=== PATIENT | female | born 1965 | race Caucasian/White ===

== ENCOUNTER 2018-11-21 10:23 | Emergency (ER) | payer MEDICAID ==
[~2018-11-21] VITALS: Ht 160 cm; Wt 68.0 kg
[2018-11-21 10:28] VITALS: BP_SYST 158
--- NOTE | 2018-11-21 10:39 | NUR ---
Patient to ER bed 2 to gown for evaluation. Side rails up. Report given to Verena ELLER.
--- NOTE | 2018-11-21 10:50 | NUR ---
PT STATES THAT SHE IS NOW LIVING IN A [facility], PT HAS A CAR BUT IS OUT OF GAS. PT STATES THAT SHE HAS MANY RED BUMPS ON LEGS. OFFERED PT A MEAL TRAY AND SHE SAYS SHE'S NOT HUNGRY AT THIS TIME.
[2018-11-21] MEDS ORDERED: NACL 0.9% 1,000 ML IV ONE (11:08)
--- NOTE | 2018-11-21 11:11 | NUR ---
DR NASH AT BEDSIDE FOR EVALUATION
[2018-11-21] MEDS ORDERED: KETOROLAC TROMETHAMINE 30 MG VIAL IVP ONE (11:15)
[2018-11-21 11:39] LABS: CALCIUM 8.9 mg/dL (8.4-11.0); CREATININE 0.57 mg/dL (0.55-1.30); POTASSIUM 3.7 mmol/L (3.5-5.1)
[2018-11-21 11:40] LABS: BASOPHILS # (AUTO) 0.1 K/uL (0.0-0.2); BASOPHILS % (AUTO) 0.9 % (0.0-2.0); EOSINOPHILS # (AUTO) 0.2 K/uL (0.0-0.4); HEMATOCRIT 40.8 % (36-48); HEMOGLOBIN 13.6 g/dL (12.0-16.0); LYMPHOCYTES # (AUTO) 1.8 K/uL (1.0-5.5); LYMPHOCYTES % (AUTO) 28.6 % (20.5-51.5); MEAN CORPUSCULAR HEMOGLOBIN 30 pg (27-31); MEAN CORPUSCULAR HGB CONC 33 % (32-36); MEAN CORPUSCULAR VOLUME 91 fL (79.0-98.0); MONOCYTES # (AUTO) 0.5 K/uL (0.0-1.0); MONOCYTES % (AUTO) 7.8 % (1.7-9.3); NEUTROPHILS # (AUTO) 3.5 K/uL (1.8-7.7); NEUTROPHILS % (AUTO) 58.7 % (40.0-70.0); PLATELET COUNT (AUTO) 272 K/uL (130-430); RED BLOOD CELL COUNT(AUTO) 4.47 MIL/uL (4.2-6.2); RED CELL DISTRIBUTION WIDTH 12.2 % (9.0-15.0); WHITE BLOOD COUNT (AUTO) 6.1 K/uL (4.8-10.8)
[2018-11-21 11:45] LABS: ALBUMIN 2.6 g/dL (3.4-4.8); INR 0.9 (0.8-1.2); PROTHROMBIN TIME 9.3 SECS (9.5-12.5); TOTAL BILIRUBIN 0.4 mg/dL (0.0-1.0)
--- NOTE | 2018-11-21 11:45 | NUR ---
RESTING QUIETLY, NO CHANGES.
[2018-11-21 11:51] LABS: BILIRUBIN,URINE NEGATIVE (NEGATIVE); CLARITY/URINE HAZY (CLEAR); COLOR,URINE YELLOW (YELLOW); GLUCOSE,URINE NEGATIVE (NEGATIVE); KETONES,URINE NEGATIVE (NEGATIVE); LEUKOCYTE ESTERASE ,URINE NEGATIVE (NEGATIVE); NITRITE, URINE NEGATIVE (NEGATIVE); PROTEIN URINE NEGATIVE (NEGATIVE)
[2018-11-21 11:52] LABS: BLOOD, URINE TRACE (NEGATIVE)
--- NOTE | 2018-11-21 12:02 | NUR ---
DR NASH AT BEDSIDE FOR RE-EVALUATION.
[2018-11-21 12:10] LABS: BACTERIA,URINE RARE /HPF (None Seen); MUCUS,URINE 1+ /LPF (None Seen); RBC,URINE 0-3 /HPF (0-3); URINE AMORPHOUS PHOSPHATES 2+ /HPF (None Seen); WBC,URINE NONE SEEN /HPF (0-3)
--- NOTE | 2018-11-21 12:45 | NUR ---
Pt has been medically cleared for discharge by Dr. Delcid. Prior to discussing discharge instructions, I asked pt about her current living conditions and offered for her to speak with a social media manager. Pt states "I'm good with my current situation. My car is at the long term so I'm just going to walk to my friends house for now." I also offered to arrange for transportation at this time, however pt also refused this service. I offered pt spare clothes and a blanket, pt states "I have enough in my car, I'll be okay."
[2018-11-21 13:00] VITALS: BP_SYST 158
--- NOTE | 2018-11-21 13:00 | NUR ---
Patient given written and verbal discharge instructions and verbalizes understanding. ER MD discussed with patient the results and treatment provided. Patient in stable condition. ID arm band removed. IV catheter removed intact and dressing applied, no active bleeding. Rx of Clotrimazole & Ketoconazole given. Patient educated on pain management and to follow up with PMD. Pain Scale 0/10. Opportunity for questions provided and answered. Medication side effect fact sheet provided.
== END 2018-11-21 13:00 | disposition home or self-care (01) ==
LOC: SED 10:23
DX: M79.10 Myalgia, unspecified site (principal); B35.4 Tinea corporis; R03.0 Elevated blood-pressure reading, without diagnosis of hypertension
CPT/HCPCS: 36415; 80053; 81000; 81025; 83690; 85025; 85610; 85730; 96374; 99283; J1885; J7030

== ENCOUNTER 2018-11-25 23:03 | Emergency (ER) | payer MEDICAID ==
[~2018-11-25] VITALS: Ht 162.6 cm; Wt 70.3 kg
[2018-11-25 23:12] VITALS: BP_SYST 161
[2018-11-25] MEDS ORDERED: LORazepam 1 MG TABLET PO ONE (23:15)
[2018-11-25] MEDS ORDERED: ONDANSETRON 4 MG ODT TAB PO ONE (23:15)
[2018-11-25] MEDS ORDERED: DIPHENHYDRAMINE INJ 50 MG/ML VIAL IM ONE (23:15)
[2018-11-25] MEDS ORDERED: MORPHINE 4 MG/ML INJ. SYRINGE IM ONE (23:15)
[2018-11-25] MEDS ORDERED: NACL 0.9% 1,000 ML IV ONE (23:30)
[2018-11-25] MEDS ORDERED: KETOROLAC TROMETHAMINE 30 MG VIAL IM ONE (23:30)
[2018-11-25] MEDS ORDERED: SUMAtriptan SUCCINATE 6 MG/0.5 ML VIAL SUBCUT ONE (23:30)
[2018-11-25] MEDS ORDERED: KETOROLAC TROMETHAMINE 30 MG VIAL ONE (23:30)
[2018-11-26 06:06] VITALS: BP_SYST 138
== END 2018-11-26 06:06 | disposition home or self-care (01) ==
LOC: SED 23:03
DX: R51 Headache (principal); F15.90 Other stimulant use, unspecified, uncomplicated; R03.0 Elevated blood-pressure reading, without diagnosis of hypertension; Z86.19 Personal history of other infectious and parasitic diseases
CPT/HCPCS: 96372; 99283; J1200; J1885; J2270; J3030; J7030; Q0162